=== PATIENT | male | born 1960 | race Caucasian/White ===

== ENCOUNTER 2016-11-23 12:38 | Emergency (ER) | payer MEDICAID ==
--- NOTE | 2016-11-23 13:00 | CT ---
Head wo Cont INDICATION: Weakness. Dose: Total DLP 818. Comparison: None. FINDINGS: No acute intracranial hemorrhage, mass, or edema. Visualized portions of the paranasal sin uses and mastoid air cells are clear. Soft tissues are negative. IMPRESSION: Negative head CT.
--- NOTE | 2016-11-23 13:25 | EDM.PDOC ---
ED HPI GENERAL MEDICAL PROBLEM - General Chief Complaint: Neuro Symptoms/Deficits Stated Complaint: POSSIBLE STROKE Time Seen by Provider: 11/23/16 13:18 Source of Information: Reports: Patient, Family History Limitations: Reports: No Limitations - History of Present Illness INITIAL COMMENTS - FREE TEXT/NARRATIVE: yesterday at about 9 am he developed weakness in the left arm and left leg amnd he felt like his speech was slurred. He did not note any facial deviation. he has been quite emotional and doing alot of crying. He was home alone and did not let anyone know until his came home late last nite. Onset: Gradual Duration: Hour(s):, Other ( these symptoms are about 24 hours old and have been coming and going. ) Location: Reports: Upper Extremity, Left, Lower Extremity, Left, Other ( speech is slurred. ) Associated Symptoms: Reports: Other (pt is very emotional. ) - Related Data Allergies Allergy/AdvReac Type Severity Reaction Status Date / Time No Known Allergies Allergy Verified 09/19/13 04:31 Home Meds: Home Meds Levothyroxine 2.5 mg PO DAILY 09/19/13 [History] Past Medical History Endocrine/Metabolic History: Reports: Hypothyroidism Oncologic (Cancer) History: Reports: Thyroid - Infectious Disease History Infectious Disease History: Reports: Chicken Pox Social & Family History - Tobacco Use Smoking Status *Q: Current Every Day Smoker Years of Tobacco use: 40 Packs/Tins Daily: 1 - Caffeine Use Caffeine Use: Reports: Soda, Tea - Alcohol Use Days Per Week of Alcohol Use: 0 - Recreational Drug Use Recreational Drug Use: No ED ROS GENERAL - Review of Systems Review Of Systems: See Below Constitutional: Reports: No Symptoms, Weakness, Other (on the left side. ) HEENT: Reports: No Symptoms Respiratory: Reports: No Symptoms Cardiovascular: Reports: No Symptoms Endocrine: Reports: No Symptoms GI/Abdominal: Reports: No Symptoms : Reports: No Symptoms ED EXAM, NEURO - Physical Exam Exam: See Below Text/Narrative:: pt arrived with weakness on the left arm and leg. He has had slurring of his words and he is very emotional and crying. Exam Limited By: No Limitations General Appearance: Alert, Anxious, Mild Distress, Other (pupils equal and reactive. ) Eye Exam: Right Eye: Other Ears: Normal TMs Nose: Normal Inspection Throat/Mouth: Normal Inspection Head Exam: Atraumatic Neck: Normal Inspection, Other ( no bruits can be heard. ) Respiratory/Chest: No Respiratory Distress Cardiovascular: Regular Rate, Rhythm, Other ( ekg shows a normal sinus hythm) GI/Abdominal: Soft, Non-Tender (Male) Exam: No Hernia Rectal (Males) Exam: Deferred Neurological: Alert, Oriented x 3. No: Other ( weakness in the left arm and left leg. he has slurringof his speech. ) Back Exam: Normal Inspection Extremities: Other ( weakness in the left arm and leg. He is able to lift them but has a definiter drift. ) Psychiatric: Tearful, Other ( Pt is very emotional. ) Course - Vital Signs Last Recorded V/S: Last Vital Signs Temp 35.2 C 11/23/16 13:32 Pulse 64 11/23/16 13:32 Resp 18 11/23/16 13:32 BP 178/109 H 11/23/16 12:59 Pulse Ox 99 11/23/16 13:32 - Orders/Labs/Meds Orders: Active Orders 24 hr Category Date Time Status EKG Documentation Completion [RC] ASDIRECTED Care 11/23/16 12:44 Active UA W/MICROSCOPIC [URIN] Urgent Lab 11/23/16 12:43 Uncollected EKG 12 Lead [EK] Routine Ther 11/23/16 12:44 Ordered Labs: Laboratory Tests 11/23/16 11/23/16 11/23/16 Range/Units 13:00 13:00 13:00 WBC 8.7 (4.5-11.0) K/uL RBC 4.91 (4.30-5.90) M/uL Hgb 15.1 H (12.0-15.0) g/dL Hct 45.4 (40.0-54.0) % MCV 93 (80-98) fL MCH 31 (27-31) pg MCHC 33 (32-36) % Plt Count 293 (150-400) K/uL Neut % (Auto) 67 H (36-66) % Lymph % (Auto) 24 (24-44) % [place] % (Auto) 5 (2-6) % Eos % (Auto) 3 (2-4) % Baso % (Auto) 1 (0-1) % PT 10.7 (9.5-12.0) sec INR 1.00 (0.80-1.20) APTT 28.0 (27.0-36.0) sec Sodium 139 L (140-148) mmol/L Potassium 4.1 (3.6-5.2) mmol/L Chloride 104 (100-108) mmol/L Carbon Dioxide 27 (21-32) mmol/L Anion Gap 12.1 (5.0-14.0) mmol/L BUN 13 (7-18) mg/dL Creatinine 1.2 (0.8-1.3) mg/dL Est Cr Clr Drug Dosing 72.34 mL/min Estimated GFR (MDRD) > 60 (>60) Glucose 107 H (74-106) mg/dL Calcium 8.7 (8.5-10.1) mg/dL Total Bilirubin 0.6 (0.2-1.0) mg/dL AST 17 (15-37) U/L ALT 14 (12-78) U/L Alkaline Phosphatase 92 (46-116) U/L Total Protein 7.3 (6.4-8.2) g/dL Albumin 3.5 (3.4-5.0) g/dL Globulin 3.8 H (2.3-3.5) g/dL Albumin/Globulin Ratio 0.9 L (1.2-2.2) TSH, Ultra Sensitive (0.358-3.740) uIU/mL 11/23/16 Range/Units 13:00 WBC (4.5-11.0) K/uL RBC (4.30-5.90) M/uL Hgb (12.0-15.0) g/dL Hct (40.0-54.0) % MCV (80-98) fL MCH (27-31) pg MCHC (32-36) % Plt Count (150-400) K/uL Neut % (Auto) (36-66) % Lymph % (Auto) (24-44) % [place] % (Auto) (2-6) % Eos % (Auto) (2-4) % Baso % (Auto) (0-1) % PT (9.5-12.0) sec INR (0.80-1.20) APTT (27.0-36.0) sec Sodium (140-148) mmol/L Potassium (3.6-5.2) mmol/L Chloride (100-108) mmol/L Carbon Dioxide (21-32) mmol/L Anion Gap (5.0-14.0) mmol/L BUN (7-18) mg/dL Creatinine (0.8-1.3) mg/dL Est Cr Clr Drug Dosing mL/min Estimated GFR (MDRD) (>60) Glucose (74-106) mg/dL Calcium (8.5-10.1) mg/dL Total Bilirubin (0.2-1.0) mg/dL AST (15-37) U/L ALT (12-78) U/L Alkaline Phosphatase (46-116) U/L Total Protein (6.4-8.2) g/dL Albumin (3.4-5.0) g/dL Globulin (2.3-3.5) g/dL Albumin/Globulin Ratio (1.2-2.2) TSH, Ultra Sensitive 65.190 H (0.358-3.740) uIU/mL Meds: Medications Discontinued Medications Generic Name Dose Route Start Last Admin Trade Name Chloe PRN Reason Stop Dose Admin Aspirin 81 mg 11/23/16 15:14 Aspirin PO 11/23/16 15:15 ONETIME ONE - Re-Assessments/Exams Free Text/Narrative Re-Assessment/Exam: 11/23/16 15:17 Pt had a neg cat scan of the head. A MRI of the head revealed a rt brainstem stroke. He was reluctant to go to [place] but did decide to go. He will be transfered to [facility] by ambulance. 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. - My Orders Last 24 Hours: My Active Orders 11/23/16 12:43 UA W/MICROSCOPIC [URIN] Urgent 11/23/16 12:44 EKG Documentation Completion [RC] ASDIRECTED EKG 12 Lead [EK] Routine - Assessment/Plan Last 24 Hours: My Active Orders 11/23/16 12:43 UA W/MICROSCOPIC [URIN] Urgent 11/23/16 12:44 EKG Documentation Completion [RC] ASDIRECTED EKG 12 Lead [EK] Routine
--- NOTE | 2016-11-23 14:16 | MR ---
Brain wo Cont HISTORY: Slurred speech and left-sided weakness. COMPARISON: CT brain 11/23/2016. FINDINGS: On the diffusion images there is a more recent area of ischemia in the right brainstem bea ge 7 series 6 measuring 10 mm AP x 5 mm transverse. There is no acute hemorrhage there is no mass effect or midline shift. The remainder the posterior f nam appear unremarkable. There is some mild ethmoid and left frontal sinus disease. Mild right mast oid air cell disease which may be chronic. Impression: 1. More recent area of ischemia in the right brainstem. 2. Sinus disease and right mastoid air cell disease. These findings were called to the emergency room physician at 2:10 PM hours
[2016-11-23] MEDS ORDERED: Aspirin 81 MG Tab.Chew PO ONE (15:14)
[2016-11-23 16:53] VITALS: BP 132/87
== END 2016-11-23 16:56 ==
LOC: JP.ED 12:38
DX: I63.9 Cerebral infarction, unspecified (principal); E03.9 Hypothyroidism, unspecified; F17.210 Nicotine dependence, cigarettes, uncomplicated; Z79.899 Other long term (current) drug therapy
CPT/HCPCS: 36415; 70450; 70551; 80053; 84443; 85025; 85610; 85730; 93005; 99285; A9270

== ENCOUNTER 2018-11-11 10:24 | Emergency (ER) | payer MEDICAID | END 2018-11-11 12:28 | disposition left against medical advice (07) | LOC: JP.ED 10:24 | DX: Z53.21 Procedure and treatment not carried out due to patient leaving prior to being seen by health care provider (principal) ==

== ENCOUNTER 2019-04-02 18:49 | Emergency (ER) | payer MEDICAID ==
[2019-04-02 19:16] VITALS: BP 158/106; PULSE 93
--- NOTE | 2019-04-02 19:37 | EDM.PDOC ---
ED HPI GENERAL MEDICAL PROBLEM - General Chief Complaint: ENT Problem Stated Complaint: TOOTH BROKE Time Seen by Provider: 04/02/19 19:32 Source of Information: Reports: Patient History Limitations: Reports: No Limitations - History of Present Illness INITIAL COMMENTS - FREE TEXT/NARRATIVE: pt arrived with pain in the left lower gumline where he had a tooth break off. He has some glandular swelling on the left. Onset: Other ( the tooth broke yesterday. ) Duration: Hour(s): Location: Reports: Face Associated Symptoms: Reports: No Other Symptoms Oral/Mouth Pain Score (Numeric/FACES): 9 - Related Data Allergies Allergy/AdvReac Type Severity Reaction Status Date / Time No Known Allergies Allergy Verified 04/02/19 19:16 Home Meds: Home Meds Levothyroxine 175 mcg PO ACBRK 04/22/18 [History] atorvaSTATin [Lipitor] 40 mg PO BEDTIME 04/22/18 [History] Past Medical History Cardiovascular History: Reports: High Cholesterol, Hypertension Musculoskeletal History: Reports: Fracture Neurological History: Reports: CVA Endocrine/Metabolic History: Reports: Hypothyroidism Oncologic (Cancer) History: Reports: Thyroid - Infectious Disease History Infectious Disease History: Reports: Chicken Pox - Past Surgical History Musculoskeletal Surgical History: Reports: Other (See Below) Other Musculoskeletal Surgeries/Procedures:: LEFT ANKLE Social & Family History - Tobacco Use Smoking Status *Q: Current Every Day Smoker Years of Tobacco use: 35 Packs/Tins Daily: 0.5 - Caffeine Use Caffeine Use: Reports: None - Recreational Drug Use Recreational Drug Use: Yes Recreational Drug Type: Reports: Marijuana/Hashish ED ROS ENT - Review of Systems Review Of Systems: See Below Constitutional: Reports: No Symptoms HEENT: Reports: Dental Pain Respiratory: Reports: No Symptoms Cardiovascular: Reports: No Symptoms Endocrine: Reports: No Symptoms GI/Abdominal: Reports: No Symptoms : Reports: No Symptoms Musculoskeletal: Reports: No Symptoms Skin: Reports: No Symptoms ED EXAM, ENT - Physical Exam Exam: See Below Text/Narrative:: pt had a tooth break off yesterday and he has been very uncomfortable. He want to try to get in to the dentist tomorrow. Exam Limited By: No Limitations General Appearance: Alert, Anxious, Moderate Distress Ears: Normal TMs Nose: Normal Inspection Mouth/Throat: Other (pt has a left lower tooth that has broken at the gum line. This is very uncomfortable for him. ) Head: Atraumatic Neck: Lymphadenopathy (L) Respiratory/Chest: No Respiratory Distress Course - Vital Signs Last Recorded V/S: Last Vital Signs Temp 36.6 C 04/02/19 19:14 Pulse 93 04/02/19 19:14 Resp 18 04/02/19 19:14 BP 158/106 H 04/02/19 19:14 Pulse Ox 96 04/02/19 19:14 Departure - Departure Time of Disposition: 19:35 Disposition: Home, Self-Care 01 Condition: Fair Clinical Impression: Pain, dental - Discharge Information Referrals: Jena Lerma MD [Primary Care Provider] - Forms: ED Department Discharge Care Plan Goals: appt at the dental clinic in am, percocet # 6 1 tab q6h prn for pain, amoxicillin 500mg tid.
== END 2019-04-02 19:50 | disposition home or self-care (01) ==
LOC: JP.ED 18:49
DX: K08.89 Other specified disorders of teeth and supporting structures (principal); K03.81 Cracked tooth; E78.00 Pure hypercholesterolemia, unspecified; I10 Essential (primary) hypertension; E03.9 Hypothyroidism, unspecified; F17.210 Nicotine dependence, cigarettes, uncomplicated; Z86.73 Personal history of transient ischemic attack (TIA), and cerebral infarction without residual deficits; Z79.899 Other long term (current) drug therapy; Z79.890 Hormone replacement therapy
CPT/HCPCS: 99282

== ENCOUNTER 2021-12-26 08:45 | Emergency (ER) | payer SELFPAY ==
[2021-12-26 08:58] VITALS: BP 151/104; PULSE 76
== END 2021-12-26 09:21 | disposition home or self-care (01) ==
LOC: JP.ED 08:45
DX: K04.7 Periapical abscess without sinus (principal); E03.9 Hypothyroidism, unspecified; I10 Essential (primary) hypertension; Z86.73 Personal history of transient ischemic attack (TIA), and cerebral infarction without residual deficits; Z79.899 Other long term (current) drug therapy; Z79.82 Long term (current) use of aspirin
CPT/HCPCS: 99282

== ENCOUNTER 2022-03-23 22:56 | Emergency (ER) | payer SELFPAY ==
[2022-03-23 23:03] VITALS: BP 177/122; PULSE 65
[2022-03-23] MEDS ORDERED: Bupivacaine 0.5% 10 ML SDV INJECT ONE (23:32)
== END 2022-03-24 00:06 | disposition home or self-care (01) ==
LOC: JP.ED 22:56
DX: S63.275A Dislocation of unspecified interphalangeal joint of left ring finger, initial encounter (principal); I10 Essential (primary) hypertension; F17.210 Nicotine dependence, cigarettes, uncomplicated; W22.8XXA Striking against or struck by other objects, initial encounter
CPT/HCPCS: 26770; 73130; 99283; J3490

== ENCOUNTER 2023-08-10 01:03 | Emergency (ER) | payer OTHER ==
[2023-08-10 01:22] VITALS: BP 163/119; PULSE 123
[2023-08-10 01:47] LABS: BASOPHILS ABSOLUTE AUTO 0.04 K/uL (0.00-0.10); BASOPHILS PERCENT AUTO 0.3 % (0.1-1.3); EOSINOPHILS ABSOLUTE AUTO 0.06 K/uL (0.00-0.40); EOSINOPHILS PERCENT AUTO 0.5 % (0.0-5.4); HEMATOCRIT 47.1 % (38.4-49.7); HEMOGLOBIN 16.1 g/dL (12.9-16.9); IMMATURE GRAN ABSOLUTE AUTO 0.04 K/uL (0.00-0.23); IMMATURE GRAN PERCENT AUTO 0.3 % (0.0-0.7); LYMPHOCYTES ABSOLUTE AUTO 2.11 K/uL (0.8-3.3); LYMPHOCYTES PERCENT AUTO 17.8 % (11.4-47.7); MEAN CORPUSCULAR HEMOGLOBIN 30.1 pg (31.6-35.5); MEAN CORPUSCULAR HGB CONC 34.2 g/dL (31.6-35.5); MONOCYTES ABSOLUTE AUTO 1.12 K/uL (0.20-0.90); MONOCYTES PERCENT AUTO 9.4 % (3.3-12.6); NEUTROPHILS ABSOLUTE AUTO 8.51 K/uL (1.0-7.6); NEUTROPHILS PERCENT AUTO 71.7 % (40.0-78.1); PLATELET COUNT,PLT 262 K/uL (130-375); RED BLOOD CELL COUNT 5.35 M/uL (4.14-5.76); WHITE BLOOD CELL COUNT,WBC 11.9 K/uL (3.2-11.0)
[2023-08-10] MEDS: Polyethylene Glycol 3350 Powder 17 GM Packet PO ONE ×2 (01:47→02:17)
[2023-08-10 02:09] LABS: ALANINE AMINOTRANSFERASE,ALT 27 U/L (12-78); ALBUMIN 3.8 g/dL (3.4-5.0); ALKALINE PHOSPHATASE 151 U/L (46-116); ASPARTATE AMNIOTRANSFERASE,AST 20 U/L (15-37); BILIRUBIN TOTAL 0.8 mg/dL (0.2-1.0); BLOOD UREA NITROGEN,BUN 15 mg/dL (7-18); C-REACTIVE PROTEIN 7.65 mg/dL (<0.50); CALCIUM 9.5 mg/dL (8.5-10.1); CARBON DIOXIDE,CO2 25 mmol/L (21-32); CHLORIDE,CL 98 mmol/L (100-108); CREATININE 1.1 mg/dL (0.8-1.3); EST CRCL DRUG DOSING (CG) 72.26 mL/min; ESTIMATED GFR 75 mL/min (>60); GLUCOSE RANDOM 120 mg/dL (74-106); POTASSIUM,K 4.4 mmol/L (3.6-5.2); PROTEIN TOTAL,TP 8.9 g/dL (6.4-8.2); SODIUM,NA 135 mmol/L (140-148)
[2023-08-10 02:11] LABS: A/G RATIO 0.8 (1.2-2.2); ANION GAP 16.4 mmol/L (5.0-14.0)
[2023-08-10 02:38] LABS: APPEARANCE,URINE CLEAR (CLEAR); BILIRUBIN,URINE SMALL (NEGATIVE); COLOR,URINE YELLOW (YELLOW); GLUCOSE,URINE NEGATIVE (NEGATIVE); KETONES,URINE NEGATIVE (NEGATIVE); LEUKOCYTE ESTERASE,URINE NEGATIVE (NEGATIVE); NITRITE,URINE NEGATIVE (NEGATIVE); OCCULT BLOOD,URINE TRACE-LYSED (NEGATIVE); PROTEIN,URINE 30 mg/dL (NEGATIVE); UROBILINOGEN,URINE 0.2 EU/dL (0.2-1.0)
[2023-08-10 02:42] LABS: AMORPHOUS SEDIMENT,URINE NOT SEEN; BACTERIA,URINE RARE; EPITHELIAL CELLS,URINE NOT SEEN; MUCUS,URINE NOT SEEN; RBC,URINE 0-5 (0-5); WBC,URINE 0-5 (0-5)
[2023-08-10] MEDS ORDERED: Naloxone 0.4 MG/ML SDV IVPUSH PRN (03:31)
[2023-08-10] MEDS: HYDROmorphone 0.5 MG/0.5 ML Syringe IVPUSH ONE (03:35)
[2023-08-10] MEDS: Iopamidol 612 MG/ML 100 ML Bottle IV STA (03:41)
[2023-08-10] MEDS: Sodium Chloride 0.9% 80 ML IV STA (03:42)
[2023-08-10] MEDS: Sodium Chloride 0.9% 1,000 ML IV SCH (03:50)
[2023-08-10] MEDS: LORazepam 2 MG/ML SDV IVPUSH ONE (04:39)
[2023-08-10 05:39] LABS: CORONAVIRUS COVID-19 NAA NEGATIVE (NEGATIVE); INFLUENZA A NAA NEGATIVE (NEGATIVE); INFLUENZA B NAA NEGATIVE (NEGATIVE); RESPIRATORY SYNCYTIAL VIR NAA NEGATIVE (NEGATIVE)
== END 2023-08-10 06:00 ==
LOC: JP.ED 01:03
DX: F41.9 Anxiety disorder, unspecified (principal); M54.50 Low back pain, unspecified; I10 Essential (primary) hypertension; E03.9 Hypothyroidism, unspecified; Z79.899 Other long term (current) drug therapy; Z86.73 Personal history of transient ischemic attack (TIA), and cerebral infarction without residual deficits; Z87.891 Personal history of nicotine dependence
CPT/HCPCS: 0241U; 36415; 71260; 74176; 74177; 80053; 81001; 84443; 85025; 86140; 87040; 96361; 96374; 96375; 99284; A9270; J1170; J2060; J3490; J7030; Q9967